=== PATIENT | male | born 1940 | race African-American/Black ===

== ENCOUNTER 2016-08-17 16:26 | Inpatient (IN) | payer MEDICARE, OTHER ==
[2016-08-17] MEDS ORDERED: NORMAL SALINE 1000 ML 1,000 ML IV ONE (19:49)
--- NOTE | 2016-08-17 20:35 | ER Document Report ---
ED GI/ - General Chief Complaint: Abdominal Pain Stated Complaint: RAPID HEART RATE,ABDOMINAL PAIN Time Seen by Provider: 08/17/16 19:11 Mode of Arrival: Ambulatory Information source: Patient, Relative Notes: 9-year-old male presents to ED for lower abdominal pain in the stomach for the last couple days. His niece is at the bedside bedside and states that he does have a history of dementia. On the chart it says he had a rapid heartbeat and chest pain but according to the patient he does not have her protect the and does not have chest pain. He denies any fevers or chills and just has the lower right abdominal pain for 4 days. TRAVEL OUTSIDE OF THE [place] IN LAST 30 DAYS: No - HPI Patient complains to provider of: Abdominal pain Onset: Other - 4 days knee since that time he is curled over with the pain Timing/Duration: Waxing and waning Quality of pain: Sharp Severity at maximum: Severe Severity in ED: Mild Pain Level: 2 Location: RLQ Associated symptoms: Blood in stool Exacerbated by: Denies Relieved by: Denies Similar symptoms previously: Yes Recently seen / treated by doctor: No - Related Data Allergies/Adverse Reactions: No Known Allergies Allergy (Unverified 08/17/16 20:30) Home Medications: Current Home Medications No Home Medications 08/18/16 [History] Past Medical History - General Information source: Patient, Relative Cannot obtain history due to: Dementia - Social History Smoking Status: Never Smoker Cigarette use (# per day): No Chew tobacco use (# tins/day): No Smoking Education Provided: No Frequency of alcohol use: Social Drug Abuse: None Lives with: Alone Family History: Reviewed & Not Pertinent Patient has homicidal ideation: No - Past Medical History Cardiac Medical History: Reports: None Pulmonary Medical History: Reports: None EENT Medical History: Reports: None Neurological Medical History: Reports: None Endocrine Medical History: Reports: None Renal/ Medical History: Reports: None Malignancy Medical History: Reports None GI Medical History: Reports: None Musculoskeltal Medical History: Reports None Skin Medical History: Reports None Psychiatric Medical History: Reports: Hx Dementia Traumatic Medical History: Reports: None Infectious Medical History: Reports: None Surgical Hx: Negative Past Surgical History: Reports: None Review of Systems - Review of Systems Constitutional: No symptoms reported EENT: No symptoms reported Cardiovascular: No symptoms reported Respiratory: No symptoms reported Gastrointestinal: Abdominal pain, Other - Dark stools Genitourinary: No symptoms reported Male Genitourinary: No symptoms reported Musculoskeletal: No symptoms reported Skin: No symptoms reported Hematologic/Lymphatic: No symptoms reported Neurological/Psychological: No symptoms reported -: Yes All other systems reviewed and negative Physical Exam - Vital signs Vitals: Temp Pulse Resp BP Pulse Ox 99.8 F 85 16 120/81 95 08/17/16 16:39 08/17/16 16:39 08/17/16 16:39 08/17/16 16:39 08/17/16 16:39 Interpretation: Normal - General General appearance: Appears well, Alert - HEENT Head: Normocephalic, Atraumatic Eyes: Normal Pupils: PERRL - Respiratory Respiratory status: No respiratory distress Chest status: Nontender Breath sounds: Normal Chest palpation: Normal - Cardiovascular Rhythm: Regular Heart sounds: Normal auscultation Murmur: No - Abdominal Inspection: Normal Distension: No distension Bowel sounds: Normal Tenderness: Tender - rlq adn llq Organomegaly: No organomegaly - Back Back: Normal, Nontender - Extremities General upper extremity: Normal inspection, Nontender, Normal color, Normal ROM , Normal temperature General lower extremity: Normal inspection, Nontender, Normal color, Normal ROM , Normal temperature, Normal weight bearing. No: Guillermina's sign - Neurological Neuro grossly intact: Yes Cognition: Normal Orientation: AAOx4 Anton Coma Scale Eye Opening: Spontaneous Anton Coma Scale Verbal: Oriented [place] Coma Scale Motor: Obeys Commands Anton Coma Scale Total: 15 Speech: Normal Motor strength normal: LUE, RUE, LLE, RLE Sensory: Normal - Psychological Associated symptoms: Normal affect, Normal mood - Skin Skin Temperature: Warm Skin Moisture: Dry Skin Color: Normal Course - Re-evaluation Re-evalutation: 08/18/16 06:58 Patient has dementia and Dr. Saavedra and signed the surgical consent per family's request - Vital Signs Vital signs: Temp Pulse Resp BP Pulse Ox 98.3 F 89 17 166/91 H 100 08/18/16 06:42 08/18/16 06:42 08/18/16 06:42 08/18/16 06:42 08/18/16 06:42 - Laboratory Result Diagrams: 08/17/16 20:15 08/17/16 20:15 Laboratory results interpreted by me: 08/17/16 08/17/16 08/17/16 20:15 20:15 20:15 RDW 14.7 H Chloride 96 L BUN 21 H Glucose 116 H Total Protein 8.7 H Urine Protein 100 H Urine Blood SMALL H Urine Urobilinogen 2.0 H - Diagnostic Test Radiology reviewed: Image reviewed, Reports reviewed Discharge - Discharge Clinical Impression: Appendicitis Qualifiers: Appendicitis type: acute appendicitis Acute appendicitis type: with localized peritonitis Qualified Code(s): K35.3 - Acute appendicitis with localized peritonitis Admitting Provider: Surgicalist - [facility] Unit Admitted: Surgical Floor
[2016-08-17 20:50] LABS: ABSOLUTE LYMPHOCYTES (AUTO) 1.7 10^3/uL (0.5-4.7); ABSOLUTE MONOCYTES (AUTO) 0.6 10^3/uL (0.1-1.4); BASOPHILS % (AUTO) 0.4 % (0-2); EOSINOPHILS % (AUTO) 0.3 % (0-6); HEMATOCRIT 42.3 % (37.9-51.0); HEMOGLOBIN 13.6 g/dL (13.5-17.0); HGB HCT DIFFERENCE -1.5; LYMPHOCYTES % (AUTO) 16.1 % (13-45); MEAN CORPUSCULAR HEMOGLOBIN 28.4 pg (27.0-33.4); MEAN CORPUSCULAR HGB CONC 32.2 g/dL (32.0-36.0); MEAN CORPUSCULAR VOLUME 88 fl (80-97); MONOCYTES % (AUTO) 5.4 % (3-13); RED BLOOD COUNT 4.78 10^6/uL (4.35-5.55); RED CELL DISTRIBUTION WIDTH 14.7 % (11.5-14.0); SEGMENTED NEUTROPHILS % (AUTO) 77.8 % (42-78); WHITE BLOOD COUNT 10.3 10^3/uL (4.0-10.5)
[2016-08-17 20:59] LABS: APPEARANCE,URINE SLIGHTLY-CLOUDY; BILIRUBIN,URINE NEGATIVE (NEGATIVE); GLUCOSE, URINE NEGATIVE (NEGATIVE); KETONES,URINE NEGATIVE (NEGATIVE); LEUKOCYTE ESTERASE,URINE NEGATIVE (NEGATIVE); NITRITE,URINE NEGATIVE (NEGATIVE); PROTEIN,URINE 100 mg/dL (NEGATIVE); URINE SPECIFIC GRAVITY 1.032
[2016-08-17 21:12] LABS: ALANINE AMINOTRANSFERASE 33 U/L (21-72); ALBUMIN 4.5 g/dL (3.5-5.0); ALKALINE PHOSPHATASE 76 U/L (38-126); ANION GAP 15 (5-19); ASPARTATE AMINO TRANSFERASE 18 U/L (17-59); BILIRUBIN,DIRECT 0.3 mg/dL (0.0-0.4); BILIRUBIN,TOTAL 1.3 mg/dL (0.2-1.3); BLOOD UREA NITROGEN 21 mg/dL (7-20); CALCIUM 9.7 mg/dL (8.4-10.2); CARBON DIOXIDE 29 mmol/L (22-30); CHLORIDE 96 mmol/L (98-107); CREATININE RESULT 0.88 mg/dL (0.52-1.25); GLUCOSE 116 mg/dL (75-110); LIPASE 41.6 U/L (23-300); POTASSIUM 3.8 mmol/L (3.6-5.0); SODIUM 139.9 mmol/L (137-145); TOTAL PROTEIN 8.7 g/dL (6.3-8.2)
--- NOTE | 2016-08-17 23:20 | RADIOLOGY REPORT (SQ) ---
EXAM DESCRIPTION: CT ABD/PELVIS WITH IV ORAL COMPLETED DATE/TIME: 08/17/2016 10:46 pm REASON FOR STUDY: lower right abdominal pain COMPARISON: None. TECHNIQUE: CT scan of the abdomen and pelvis performed using helical scanning technique with dynamic intravenous contrast injection. No oral contrast. Images reviewed with lung, soft tissue, and bone windows. Reconstructed coronal and sagittal MPR images reviewed. Delayed images for evaluation of the urinary system also acquired. All images stored on PACS. All CT scanners at this facility use dose modulation, iterative reconstruction, and/or weight based d osing when appropriate to reduce radiation dose to as low as reasonably achievable (ALARA). [facility]: Dose Right [facility]: CareDose [facility]: Dose Right [facility]: Teradose 4D [facility]: Magikflix CONTRAST TYPE AND DOSE: contrast/concentration: Isovue 370.00 mg/ml; Total Contrast Delivered: 80.0 ml; Total Saline Delivered: 68.0 ml RENAL FUNCTION: GFR > 60. RADIATION DOSE: Up-to-date CT equipment and radiation dose reduction techniques were employed. CTDIv ol: 6.3 mGy. DLP: 705 mGy-cm.. LIMITATIONS: None. FINDINGS: LOWER CHEST: Mild basilar subsegmental atelectasis. LIVER: Normal size. No masses. No dilated ducts. SPLEEN: Normal size. No focal lesions. PANCREAS: No masses. No significant calcifications. No adjacent inflammation or peripancreatic fluid collections. Pancreatic duct not dilated. GALLBLADDER: No identified stones by CT criteria. No inflammatory changes to suggest cholecystitis. ADRENAL GLANDS: No significant masses or asymmetry. RIGHT KIDNEY AND URETER: No solid masses. No significant calcifications. No hydronephrosis or hyd roureter. LEFT KIDNEY AND URETER: No solid masses. 4 cm cyst. . No significant calcifications. No hydronep hrosis or hydroureter. AORTA AND VESSELS: No aneurysm. No dissection. Renal arteries, SMA, celiac without stenosis. RETROPERITONEUM: No retroperitoneal adenopathy, hemorrhage or masses. BOWEL AND PERITONEAL CAVITY: Findings most consistent with acute appendicitis with moderate inflammat ory changes and free fluid in the right lower quadrant mesentery and wall thickening in the adjacent distal ileum. . APPENDIX: Findings most consistent with acute appendicitis with moderate inflammatory changes and karina e fluid in the right lower quadrant mesentery and wall thickening in the adjacent distal ileum. PELVIS: Mild free fluid. Normal bladder. ABDOMINAL WALL: No masses. No hernias. BONES: No significant or acute findings. OTHER: No other significant finding. IMPRESSION: Findings most consistent with acute appendicitis with moderate inflammatory changes and free fluid in the right lower quadrant mesentery and wall thickening in the adjacent distal ileum. S urgical consultation is recommended. TECHNICAL DOCUMENTATION: JOB ID: [id number] Quality ID # [id number]: Final reports with documentation of one or more dose reduction techniques (e.g., Au tomated exposure control, adjustment of the mA and/or kV according to patient size, use of iterative reconstruction technique) 2010 [employer]- All Rights Reserved
[2016-08-17] MEDS ORDERED: PIPERACILLIN/TAZOBACTAM 3.375 GM VIAL IV ONE (23:37)
[2016-08-18] MEDS ORDERED: PROPOFOL INJ 200 MG/20 ML VIAL IV ONE (00:31)
[2016-08-18] MEDS ORDERED: FENTANYL CITRATE INJ/PF 100 MCG/2 ML AMPUL ONE ×2 (00:31)
--- NOTE | 2016-08-18 00:51 | PDOC H&P ---
History of Present Illness Admission Date/PCP: 08/18/16 00:15 [facility] History of Present Illness: KT ALEMAN is a 76 year old male with a 4 day hx pf abdominal pain, poor appetite, pain localized in the right lower quadrant. He is suffering from dementia and lives at home by himself. He has been brought to the ER by family members (daughter, niece, and nephew) concerned about the patient condition. A CT scan of the A/P has been done and it is significant for acute appendicitis. However, the patient does not have any understanding of his condition as well as the possibility of loss of life should the condition be left untreated and has expressed the wish to leave the hospital "to think about things". In presence of the ER Physician, the patient has been requested to explain his understanding of his condition and the consequences should the condition be left untreated. He has shown nor understanding of the above and is unable to repeat the explanation conveyed to him. Also, the family brink not have anyone with power of civil litigation attorney; after the meeting, done in the presence of myself, patient, ER physician, and family members, has decision has been made that the daughter sign the consent in place of her father. In agreement with family members and the ED Physician, the patient should be taken to surgery tonight due to the emergency of the condition (appendicitis) requiring immediate surgical attention. Past Medical History Cardiac Medical History: Reports: None Pulmonary Medical History: Reports: None EENT Medical History: Reports: None Neurological Medical History: Reports: None Endocrine Medical History: Reports: None Renal/ Medical History: Reports: None Malignancy Medical History: Reports: None GI Medical History: Reports: None Musculoskeltal Medical History: Reports: None Skin Medical History: Reports: None Psychiatric Medical History: Reports: Dementia - significant Traumatic Medical History: Reports: None Infectious Medical History: Reports: None Past Surgical History Past Surgical History: Reports: None Social History Lives with: Alone Smoking Status: Never Smoker Frequency of Alcohol Use: None Drugs: None - Advance Directive Surrogate healthcare decision maker:: None Family History Family History: Reviewed & Not Pertinent Parental Family History Reviewed: Yes - n/a Children Family History Reviewed: Unknown Sibling(s) Family History Reviewed.: Unknown Medication/Allergy Home Medications: No Home Medications 08/18/16 Allergies/Adverse Reactions: No Known Allergies Allergy (Unverified 08/17/16 20:30) Physical Exam Vital Signs: Temp Pulse Resp BP Pulse Ox 99.8 F 85 16 120/81 95 08/17/16 16:39 08/17/16 16:39 08/17/16 16:39 08/17/16 16:39 08/17/16 16:39 General appearance: PRESENT: no acute distress, thin, well-developed Head exam: PRESENT: atraumatic Mouth exam: PRESENT: dry mucosa Neck exam: PRESENT: full ROM Respiratory exam: PRESENT: clear to auscultation cesar Cardiovascular exam: PRESENT: RRR GI/Abdominal exam: PRESENT: guarding, tenderness - in the right lower quadrant Rectal exam: PRESENT: deferred Musculoskeletal exam: PRESENT: full ROM Neurological exam: PRESENT: alert Psychiatric exam: PRESENT: anxious, other - shows no understandoing of his condition and consequences Results Impressions: Abdomen/Pelvis CT 08/17/16 19:49 IMPRESSION: Findings most consistent with acute appendicitis with moderate inflammatory changes and free fluid in the right lower quadrant mesentery and wall thickening in the adjacent distal ileum. Surgical consultation is recommended. Assessment & Plan - Diagnosis (1) Appendicitis Qualifiers: Appendicitis type: acute appendicitis Acute appendicitis type: with localized peritonitis Qualified Code(s): K35.3 - Acute appendicitis with localized peritonitis - Plan Summary Plan Summary: Aggressive IV hydration 1 L NS and NS @ 150 cc/hr IV Zosyn as preop antibiotic Plan: laparoscopic appendectomy. possible open. Procedure, risks, benefits, complications including stroke, heart attack, possible have been explained to the patient and family. While the family has full understanding of the procedure, complications, and alternatives, the patient shows no understanding of the above and the daughter will sing the consent. Patient will remain hospitalized for 1-2 days after the procedure
[2016-08-18] MEDS ORDERED: LIDOCAINE 1% INJ-PF (10 MG/ML) 30 ML SDV INJ ONE (01:22)
[2016-08-18] MEDS ORDERED: LIDOCAINE 1% INJ-PF (10 MG/ML) 30 ML SDV ONE (01:25)
[2016-08-18] MEDS ORDERED: ONDANSETRON HCL INJ/PF 4 MG/2 ML SDV IV PRN ×3 (01:55→13:33)
[2016-08-18] MEDS ORDERED: MEPERIDINE HCL/PF INJ 25 MG/1 ML DISP.SYRIN IV PRN (01:55)
[2016-08-18] MEDS ORDERED: DIPHENHYDRAMINE HCL 50 MG/ML VIAL IV PRN (01:55)
[2016-08-18] MEDS ORDERED: FENTANYL CITRATE INJ/PF 100 MCG/2 ML AMPUL IV PRN ×2 (01:55)
--- NOTE | 2016-08-18 04:09 | Operative Report ---
Operative Report DATE OF SURGERY: 08/18/16 PREOPERATIVE DIAGNOSIS: Acute appendicitis POSTOPERATIVE DIAGNOSIS: Ruptured gangrenous acute appendicitis OPERATION: Attempted laparoscopic appendectomy. Exploratory laparotomy. Ileocecectomy SURGEON: NIKKI MONTES ANESTHESIA: Local TISSUE REMOVED OR ALTERED: Terminal ileum with cecum and appendix COMPLICATIONS: None ESTIMATED BLOOD LOSS: 200 mL INTRAOPERATIVE FINDINGS: Gangrenous ruptured acute appendicitis, ischemia of the cecum and terminal ileum PROCEDURE: The procedure was done in the operating room. The patient was placed in a supine position, general anesthesia induced by endotracheal intubation, Herrera catheter and nasogastric tube were inserted. The abdomen was prepped and draped in usual fashion and incision was made from just above the umbilicus to the symphysis pubis. A 5 mm port with Optiview adapter was inserted into the patient cavity. Pneumoperitoneum was established; under direct visualization, a 5 mm port was placed in the right upper quadrant. The 5 mm port of the umbilicus was removed and replaced by a 12 mm port; the 5 mm port was inserted in the left lower quadrant of the abdomen. The patient was placed in a Trendelenburg position with the right side elevated, the right lower quadrant revealed the presence of purulent material together with a very inflamed terminal ileum and cecum. The appendix could not be identified. However, after gentle dissection a moderate amount of oozing was noted together with purulent material and the stump of the appendix. It was obvious that the appendix was gangrenous and ruptured; a decision was made to abort the laparoscopic procedure and to perform a laparotomy. Laparotomy incision was made from just above the umbilicus down to the symphysis pubis. The peritoneal cavity was entered without difficulty. The small bowel was run from ligament of Treitz to terminal ileum and the last 20 cm were found to be severely inflamed with ischemic changes and compromise of the mesentery vessels. In addition, the appendix was found to be ruptured at the base with ischemic changes and necrosis of the cecum. A decision was made to perform an ileocecectomy. A Bookwalter retractor was then placed. The ileum was then divided about 20 cm proximal to the ileocecal valve with a LINDA stapler with blue load and the mesentery of the small bowel was then divided with LigaSure. The right colon was divided from the retroperitoneum by incising the peritoneum along the line of Toldt. Dissection was then continued distally almost up to the level of the flexure. Blunt and Bovie dissection of the retroperitoneal attachments of the right colon was performed so that this was mobilized to obtain adequate length for the future anastomosis. The cecum was then dissected and divided just distal to the area of ischemia with a LINDA stapler with green load. Further division of the mesentery of the small bowel and right colon allowed the specimen to be completely removed from the peritoneal cavity. Additional length of the right colon was obtained by blunt and Bovie dissection of the colon up to the level of the liver flexure. The cecum and small bowel and placed fect-nd-krel and kept in position with antimesenteric interrupted Lembert 2-0 silk sutures. The antimesenteric border of the small bowel staple line was opened with Bovie and enterotomy was created; similarly, a colotomy was created in the right colon stump. A LINDA stapler was inserted and fired to obtain an enterocolostomy. The enterotomy was closed with Allis clamps first followed by a TA stapler. The staple line was reinforced but with interrupted 2 -0 silk Lembert sutures. The mesentery defect at the level of the anastomosis was closed with running locking 2-0 silk suture. Two 10 mm Pito-Lombardo drains were placed in the left and right lower quadrant, into the pelvis and in the right lower quadrant, respectively. The peritoneal cavity was irrigated with 4 L of normal saline which was fully aspirated, nasogastric tube position was manually checked and found to be in the stomach. The abdominal wall was closed with a running looped #1 PDS suture. The skin was irrigated and closed with renee; sterile dressings were applied to the wound. The patient tolerated procedure well, extubated, and transferred to recovery room in satisfactory conditions. The count of instruments, sponges, and needles was correct 3.
[2016-08-18] MEDS ORDERED: NORMAL SALINE INJ/PF 0.9% 10 ML SDV IV PRN (04:14)
[2016-08-18] MEDS ORDERED: NORMAL SALINE 1000 ML 1,000 ML IV PRN (04:20)
[2016-08-18] MEDS ORDERED: PIPERACILLIN/TAZOBACTAM 3.375 GM VIAL IV PRN (04:30)
[2016-08-18] MEDS ORDERED: PHARMACY COMMUNICATION ORDER MC NR (04:45)
--- NOTE | 2016-08-18 04:47 | ER Document Report ---
Doctor's Note Notes: 08/18/16 00:45 Patient is a 76-year-old male with a history of probable dementia. Patient comes in with abdominal pain and CT showing acute appendicitis. Patient with right lower quadrant tenderness. Patient does not have a healthcare proxy or power of employment attorney. Patient states that he does not want to have surgery tonight and would like to go home and come back after he had some time to think about things. Patient is not able to express understanding of what is going on. Patient is concerned that people are going to mess with his mind. Patient did not show any understanding that he has an infection and the potential consequences of the infection. Family is requesting that the patient be treated and taken to surgery. The patient does not appear to have capacity to make this decision at this time. When asked about the understanding of his present medical problem, patient to see me to please tell me what my understanding is. Patient does not express any understanding of appendicitis, implications of not treating it, and that this could be a possible fatal condition. Due to the urgent nature of treatment of this problem, agrees with the patient does not have capacity for this decision making and that the daughter can make the decision for him at this time. Patient will be taken to the operating room with Dr. Soto.
[2016-08-18] MEDS ORDERED: MORPHINE SULFATE 10 MG/ML INJ IV PRN (06:00)
[2016-08-18] MEDS ORDERED: PIPERACILLIN/TAZOBACTAM 3.375 GM VIAL IV ONE (06:05)
[2016-08-18] MEDS ORDERED: LORAZEPAM INJ 2 MG/1 ML VIAL ONE (06:52)
[2016-08-18] MEDS: PIPERACILLIN SODIUM/TAZOBACTAM 3.375 GM in NORMAL SALINE 100 ML IV SCH ×4 (07:04→23:20)
[2016-08-18 07:05] LABS: ABSOLUTE LYMPHOCYTES (AUTO) 0.8 10^3/uL (0.5-4.7); ABSOLUTE MONOCYTES (AUTO) 0.4 10^3/uL (0.1-1.4); ABSOLUTE NEUT (AUTO) 7.4 10^3/uL (1.7-8.2); BASOPHILS % (AUTO) 0.2 % (0-2); EOSINOPHILS % (AUTO) 0.1 % (0-6); HEMATOCRIT 40.7 % (37.9-51.0); HEMOGLOBIN 13.3 g/dL (13.5-17.0); HGB HCT DIFFERENCE -0.8; LYMPHOCYTES % (AUTO) 9.2 % (13-45); MEAN CORPUSCULAR HEMOGLOBIN 28.5 pg (27.0-33.4); MEAN CORPUSCULAR HGB CONC 32.7 g/dL (32.0-36.0); MEAN CORPUSCULAR VOLUME 87 fl (80-97); MONOCYTES % (AUTO) 4.6 % (3-13); RED BLOOD COUNT 4.68 10^6/uL (4.35-5.55); RED CELL DISTRIBUTION WIDTH 14.1 % (11.5-14.0); SEGMENTED NEUTROPHILS % (AUTO) 85.9 % (42-78); WHITE BLOOD COUNT 8.7 10^3/uL (4.0-10.5)
[2016-08-18 07:25] LABS: ANION GAP 15 (5-19); BLOOD UREA NITROGEN 18 mg/dL (7-20); CHLORIDE 103 mmol/L (98-107); CREATININE RESULT 0.72 mg/dL (0.52-1.25); GLUCOSE 195 mg/dL (75-110); POTASSIUM 3.8 mmol/L (3.6-5.0); SODIUM 136.9 mmol/L (137-145)
--- NOTE | 2016-08-18 07:40 | RADIOLOGY REPORT (SQ) ---
EXAM DESCRIPTION: KUB/ABDOMEN (SINGLE VIEW) COMPLETED DATE/TIME: 08/18/2016 6:46 am REASON FOR STUDY: Check Placement of NG Tube COMPARISON: CT, abdomen, 08/17/2016. NUMBER OF VIEWS: One view. TECHNIQUE: Supine radiographic image of the abdomen acquired. LIMITATIONS: Partial imaging of the upper abdomen and lower chest. FINDINGS: BOWEL GAS PATTERN: Normal bowel gas pattern. Minimally dilated -stacked gaseous loops of the left paracentral abdomen measuring up to 3.3 cm in diameter may indicate an ileus. Retained inte stinal contrast. CALCIFICATIONS: No suspicious calcifications. SOFT TISSUES: No gross mass or suggestion of organomegaly. HARDWARE: NG tube tip and proximal port overlie the stomach. Possible drainage catheter or artifact at the lateral aspect of the right mid abdomen partially imaged. BONES: No acute fracture. No worrisome bone lesions. OTHER: No other significant finding. IMPRESSION: 1. Adequate appearing NG tube. 2. Mild stacking of small bowel in the left paracentra l abdomen may indicate an ileus ; cannot exclude an early or low grade obstruction. TECHNICAL DOCUMENTATION: JOB ID: [id number]- All Rights Reserved
[2016-08-18 07:41] LABS: CARBON DIOXIDE 19 mmol/L (22-30)
--- NOTE | 2016-08-18 08:59 | RADIOLOGY REPORT (SQ) ---
EXAM DESCRIPTION: KUB/ABDOMEN (SINGLE VIEW) COMPLETED DATE/TIME: 08/18/2016 8:17 am REASON FOR STUDY: Check Placement of NG Tube COMPARISON: CT abdomen pelvis 08/17/2016 Abdominal films 08/18/2016 NUMBER OF VIEWS: One view. TECHNIQUE: Supine radiographic image of the abdomen acquired. LIMITATIONS: None. FINDINGS: BOWEL GAS PATTERN: Residual oral contrast from CT in nondistended small bowel loops. Few air-fluid levels in borderline distended small bowel loops in the mid abdomen likely a postoperative ileus. CALCIFICATIONS: No suspicious calcifications. SOFT TISSUES: No gross mass or suggestion of organomegaly. HARDWARE: Nasogastric tube tip and side port in the stomach. Right lower quadrant bowel anastomotic renee, right lower quadrant Pito-Lombardo drain at the bottom edge of the field of view BONES: No acute fracture. No worrisome bone lesions. OTHER: No other significant finding. IMPRESSION: Nasogastric tube tip and side port in the stomach. Ileus bowel gas pattern TECHNICAL DOCUMENTATION: JOB ID: [id number] [employer]- All Rights Reserved
--- NOTE | 2016-08-18 09:02 | PDOC PROGRESS REPORT ---
Subjective Progress Note for:: 08/18/16 Subjective:: Patient confused. But in no acute distress. At times cooperative. Physical Exam Vital Signs: Temp Pulse Resp BP Pulse Ox 98.6 F 95 18 140/103 H 97 08/18/16 08:07 08/18/16 08:07 08/18/16 08:07 08/18/16 08:07 08/18/16 08:07 Intake & Output 08/17/16 08/18/16 08/19/16 06:59 06:59 06:59 Intake Total 5875 Output Total 4460 Balance 1415 Weight 75.2 kg General appearance: PRESENT: no acute distress Respiratory exam: PRESENT: clear to auscultation cesar Cardiovascular exam: PRESENT: RRR GI/Abdominal exam: PRESENT: other - Soft, nondistended, diffuse abdominal tenderness. Drain output is serosanguineous. Extremities exam: PRESENT: other - No swelling. Results Laboratory Results: 08/18/16 06:11 08/18/16 06:11 08/18/16 08/18/16 06:11 06:11 WBC 8.7 RBC 4.68 Hgb 13.3 L Hct 40.7 MCV 87 MCH 28.5 MCHC 32.7 RDW 14.1 H Plt Count 226 Seg Neutrophils % 85.9 H Lymphocytes % 9.2 L Monocytes % 4.6 Eosinophils % 0.1 Basophils % 0.2 Absolute Neutrophils 7.4 Absolute Lymphocytes 0.8 Absolute Monocytes 0.4 Absolute Eosinophils 0.0 Absolute Basophils 0.0 Sodium 136.9 L Potassium 3.8 Chloride 103 Carbon Dioxide 19 L D Anion Gap 15 BUN 18 Creatinine 0.72 Est GFR ( Amer) > 60 Est GFR (Non-Af Amer) > 60 Glucose 195 H Calcium 8.0 L Impressions: Abdomen/Pelvis CT 08/17/16 19:49 IMPRESSION: Findings most consistent with acute appendicitis with moderate inflammatory changes and free fluid in the right lower quadrant mesentery and wall thickening in the adjacent distal ileum. Surgical consultation is recommended. KUB X-Ray 08/18/16 07:26 IMPRESSION: Nasogastric tube tip and side port in the stomach. Ileus bowel gas pattern Assessment & Plan - Diagnosis (1) Appendicitis Qualifiers: Appendicitis type: acute appendicitis Acute appendicitis type: with localized peritonitis Qualified Code(s): K35.3 - Acute appendicitis with localized peritonitis Is this a current diagnosis for this admission?: YesPlan: Status post ileocecectomy for perforated appendicitis. Patient appears okay postoperatively. Patient has underlying chronic dementia. Await bowel function. Has had to restrain patient due to his confusion. He does not appear toxic. Will consult hospitalist concerning his confusion and dementia
[2016-08-18] MEDS ORDERED: VECURONIUM BROMIDE INJ 10 MG VIAL IV ONE (09:31)
[2016-08-18] MEDS ORDERED: PHENYLEPHRINE HCL INJ/PF 10 MG/1 ML SDV ONE (09:31)
[2016-08-18] MEDS ORDERED: SUCCINYLCHOLINE CHLORIDE INJ 200 MG/10 ML VIAL ONE (09:31)
[2016-08-18] MEDS ORDERED: GLYCOPYRROLATE INJ 0.4 MG/2 ML VIAL ONE (09:31)
[2016-08-18] MEDS ORDERED: NEOSTIGMINE METHYLSULFATE 10 MG/10 ML VIAL ONE (09:31)
[2016-08-18] MEDS ORDERED: ONDANSETRON HCL INJ/PF 4 MG/2 ML SDV ONE (09:31)
[2016-08-18] MEDS ORDERED: DEXAMETHASONE SOD PHOSPHATE INJ 4 MG/1 ML VIAL ONE (09:31)
[2016-08-18] MEDS ORDERED: LIDOCAINE 2% INJ-PF (20 MG/ML) 10 ML AMPUL ONE (09:31)
[2016-08-18] MEDS: PANTOPRAZOLE SODIUM 40 MG VIAL IV SCH (10:19)
--- NOTE | 2016-08-18 20:59 | PDOC CONSULTATION ---
Consultation Consult Date: 08/18/16 Attending physician:: ALEC MORAN Consult reason:: Confusion and Dementia History of Present Illness Admission Date/PCP: 08/18/16 00:15 STEWART CALDWELL Patient complains of: Confusion with history of dementia History of Present Illness: KT ALEMAN is a 76 year old male patient known to my practice who was brought to the ED by family due to 4 days history of abdominal pain. His initial ED evaluation for remarkable for demonstrable dementia with lack of insight into his acute medical problem. After extensive discussion with family, including his daughter, niece, and nephew, and findings on his CAT abdomen and pelvis suggestive of appendicitis, decision was made for emergent surgical intervention. He had microscopic laparatomy that was converted to open due to intraperitoneal finding of ruptured appendix with local peritonitis. Patient had appendectomy with ileocecectomy. His post operative period has been mere with agitation and need for wrist restrains. He is currently on IV Zosyn, Morphine sulfate, Zofran, Protonix, and IV Normal saline infusion. His morbidities include hypertension, dementia, probable mixed type, and osteoarthritis. Past Medical History Cardiac Medical History: Reports: Hypertension Pulmonary Medical History: Reports: None EENT Medical History: Reports: None Neurological Medical History: Reports: None Endocrine Medical History: Reports: None Renal/ Medical History: Reports: None Malignancy Medical History: Reports: None GI Medical History: Reports: None Musculoskeltal Medical History: Reports: Arthritis Skin Medical History: Reports: None Psychiatric Medical History: Reports: Dementia Traumatic Medical History: Reports: None Infectious Medical History: Reports: None Past Surgical History Past Surgical History: Reports: None Social History Lives with: Alone Smoking Status: Never Smoker Frequency of Alcohol Use: None Drugs: None - Advance Directive Resuscitation Status: Full Code Family History Family History: Reviewed & Not Pertinent Parental Family History Reviewed: Yes Children Family History Reviewed: Yes Sibling(s) Family History Reviewed.: Yes Medication/Allergy Home Medications: No Home Medications 08/18/16 Allergies/Adverse Reactions: No Known Allergies Allergy (Unverified 08/17/16 20:30) Review of Systems ROS unobtainable: Due to mental status Physical Exam Vital Signs: Temp Pulse Resp BP Pulse Ox 98.7 F 91 18 133/98 H 100 08/18/16 16:11 08/18/16 16:11 08/18/16 16:11 08/18/16 16:11 08/18/16 16:11 Intake & Output 08/17/16 08/18/16 08/19/16 06:59 06:59 06:59 Intake Total 5875 1500 Output Total 4460 960 Balance 1415 540 Weight 75.2 kg General appearance: PRESENT: no acute distress, cooperative - with wrist restraints and mittens in use, obese Head exam: PRESENT: atraumatic, normocephalic Eye exam: PRESENT: conjunctiva pink, EOMI, PERRLA. ABSENT: scleral icterus Ear exam: PRESENT: normal external ear exam Mouth exam: PRESENT: moist, tongue midline Throat exam: ABSENT: post pharyngeal erythema, tonsillar erythema, tonsillar exudate, tonsillogmegaly, other Neck exam: PRESENT: full ROM. ABSENT: carotid bruit, JVD, lymphadenopathy, thyromegaly Respiratory exam: PRESENT: clear to auscultation cesar Cardiovascular exam: PRESENT: RRR. ABSENT: diastolic murmur, rubs, systolic murmur Vascular exam: ABSENT: pallor GI/Abdominal exam: PRESENT: hypoactive bowel sounds, tenderness - related to recent surgical wound site. drainage system in situ with serosanguinous fluid in reservoir.. ABSENT: rebound Rectal exam: PRESENT: deferred Extremities exam: ABSENT: pedal edema Musculoskeletal exam: PRESENT: deformity - related to multiple joints involvement with arthritis Neurological exam: PRESENT: altered - tangential in responses without clear understanding of his medical situation. He continue to express wish to go home. , oriented to person Psychiatric exam: PRESENT: agitated - but cooperative with evaluation Skin exam: PRESENT: dry, intact - except for surgoical site., warm, other - surgical site dressing satisfactory Results Laboratory Results: 08/18/16 06:11 08/18/16 06:11 08/18/16 08/18/16 06:11 06:11 WBC 8.7 RBC 4.68 Hgb 13.3 L Hct 40.7 MCV 87 MCH 28.5 MCHC 32.7 RDW 14.1 H Plt Count 226 Seg Neutrophils % 85.9 H Lymphocytes % 9.2 L Monocytes % 4.6 Eosinophils % 0.1 Basophils % 0.2 Absolute Neutrophils 7.4 Absolute Lymphocytes 0.8 Absolute Monocytes 0.4 Absolute Eosinophils 0.0 Absolute Basophils 0.0 Sodium 136.9 L Potassium 3.8 Chloride 103 Carbon Dioxide 19 L D Anion Gap 15 BUN 18 Creatinine 0.72 Est GFR ( Amer) > 60 Est GFR (Non-Af Amer) > 60 Glucose 195 H Calcium 8.0 L Impressions: Abdomen/Pelvis CT 08/17/16 19:49 IMPRESSION: Findings most consistent with acute appendicitis with moderate inflammatory changes and free fluid in the right lower quadrant mesentery and wall thickening in the adjacent distal ileum. Surgical consultation is recommended. KUB X-Ray 08/18/16 07:26 IMPRESSION: Nasogastric tube tip and side port in the stomach. Ileus bowel gas pattern Assessment & Plan - Diagnosis (1) Acute cecitis with rupture of appendix Is this a current diagnosis for this admission?: YesPlan: Further management as per surgical team. (2) Postoperative confusion Is this a current diagnosis for this admission?: YesPlan: Most likely postoperative delirium due to acute illness stress on baseline dementia. Patient will benefit from supplemental stress vitamin, less environmental stimulation and sleep disruption. Limit use of opioid to prn for shortest duration. Consider use of low dose IV Haloperidol for acute agitation. continue IV antibiotic coverage for possible underlying sepsis. Monitor indices of infection. (3) Mixed dementia Is this a current diagnosis for this admission?: YesPlan: Hold off on treatment until resolution of his acute illness. I had extensive discussion with bronwyn at bedside regarding post hospital care. 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 (4) Hypertension Qualifiers: Hypertension type: essential hypertension Qualified Code(s): I10 - Essential (primary) hypertension Is this a current diagnosis for this admission?: YesPlan: Monitor and initiate anti hypertensive medication management as indicated. Consider IV Vasotec until oral route of administration is reinstated. (5) Osteoarthritis involving multiple joints on both sides of body Is this a current diagnosis for this admission?: YesPlan: Maintain on preadmission pain medication management. - Time Time Spent: Greater than 70 Minutes - More than 50% of this time was spent on care plan review, care coordination and discussion with bernadine at bedside. Medications reviewed and adjusted accordingly: Yes Anticipated discharge: SNF - for short term rehabilitation Within: Other - Inpatient Certification Medical Necessity: Need Close Monitoring Due to Risk of Patient Decompensation, Need For IV Fluids, Need for IV Antibiotics, Need for Surgery, Risk of Complication if Not Cared For in Hospital Post Hospital Care: D/C or Transfer Summary - Plan Summary Plan Summary: As noted above. Thank you for the consultation. I will follow up on medical aspect of management. Patient will benefit from psych social worker/operations planner input regarding post hospitalization placement.
[2016-08-18] MEDS ORDERED: ENALAPRILAT DIHYDRATE INJ/PF 1.25 MG/1 ML SDV IV PRN (21:02)
[2016-08-18] MEDS ORDERED: HALOPERIDOL LACTATE INJ 5 MG/1 ML VIAL IV PRN (21:03)
[2016-08-18] MEDS: MORPHINE SULFATE 10 MG/ML INJ IV PRN (22:39)
[2016-08-18] MEDS: NORMAL SALINE 1000 ML 1,000 ML with POTASSIUM CHLORIDE 20 MEQ, MAGNESIUM SULFATE 8 MEQ,... IV SCH ×5 (22:39)
[2016-08-19] MEDS: PIPERACILLIN SODIUM/TAZOBACTAM 3.375 GM in NORMAL SALINE 100 ML IV SCH ×3 (04:57→17:42)
[2016-08-19] MEDS: MORPHINE SULFATE 10 MG/ML INJ IV PRN ×2 (04:57→21:27)
[2016-08-19 05:00] LABS: ABSOLUTE LYMPHOCYTES (AUTO) 1.4 10^3/uL (0.5-4.7); ABSOLUTE MONOCYTES (AUTO) 0.9 10^3/uL (0.1-1.4); ABSOLUTE NEUT (AUTO) 8.7 10^3/uL (1.7-8.2); BASOPHILS % (AUTO) 0.3 % (0-2); HEMATOCRIT 37.8 % (37.9-51.0); HEMOGLOBIN 12.2 g/dL (13.5-17.0); HGB HCT DIFFERENCE -1.2; LYMPHOCYTES % (AUTO) 12.4 % (13-45); MEAN CORPUSCULAR HEMOGLOBIN 28.4 pg (27.0-33.4); MEAN CORPUSCULAR HGB CONC 32.2 g/dL (32.0-36.0); MEAN CORPUSCULAR VOLUME 88 fl (80-97); MONOCYTES % (AUTO) 8.4 % (3-13); RED BLOOD COUNT 4.29 10^6/uL (4.35-5.55); RED CELL DISTRIBUTION WIDTH 14.4 % (11.5-14.0); SEGMENTED NEUTROPHILS % (AUTO) 78.9 % (42-78); WHITE BLOOD COUNT 11.1 10^3/uL (4.0-10.5)
[2016-08-19 05:14] LABS: ANION GAP 8 (5-19); BLOOD UREA NITROGEN 11 mg/dL (7-20); CALCIUM 7.6 mg/dL (8.4-10.2); CARBON DIOXIDE 26 mmol/L (22-30); CHLORIDE 105 mmol/L (98-107); CREATININE RESULT 0.73 mg/dL (0.52-1.25); GLUCOSE 122 mg/dL (75-110); SODIUM 139.3 mmol/L (137-145)
[2016-08-19] MEDS: PANTOPRAZOLE SODIUM 40 MG VIAL IV SCH (10:38)
[2016-08-19] MEDS: NORMAL SALINE 1000 ML 1,000 ML IV PRN (10:46)
--- NOTE | 2016-08-19 15:15 | PDOC PROGRESS REPORT ---
Subjective Progress Note for:: 08/19/16 Subjective:: Sitter reported that patient have been sleeping most of the day. NG tube in situ with significant bilious drainage. Patent denied any chest pain or difficulty with breathing. No reported fever or demonstrable chills. More appropriate in simple responses today. Physical Exam Vital Signs: Temp Pulse Resp BP Pulse Ox 98.2 F 72 16 114/76 100 08/19/16 11:45 08/19/16 11:45 08/19/16 11:45 08/19/16 11:45 08/19/16 11:45 Intake & Output 08/18/16 08/19/16 08/20/16 06:59 06:59 06:59 Intake Total 5875 2700 Output Total 4460 2040 Balance 1415 660 Weight 75.2 kg 75.7 kg General appearance: PRESENT: no acute distress, cooperative - but remin on wrist restraints Head exam: PRESENT: atraumatic, normocephalic Eye exam: PRESENT: conjunctiva pink, EOMI, PERRLA. ABSENT: scleral icterus Mouth exam: PRESENT: moist, tongue midline, other - NGT in situ with bilious drainage Respiratory exam: PRESENT: clear to auscultation cesar Cardiovascular exam: PRESENT: RRR. ABSENT: diastolic murmur, rubs, systolic murmur GI/Abdominal exam: PRESENT: hypoactive bowel sounds, soft, other - drainage device with serosanguinous fluid collection.. ABSENT: guarding, rebound Extremities exam: ABSENT: pedal edema Musculoskeletal exam: PRESENT: deformity - relaated to multiple joints involvement with arthritis Neurological exam: PRESENT: alert, oriented to person. ABSENT: oriented to time , oriented to situation Psychiatric exam: ABSENT: agitated, anxious Skin exam: PRESENT: dry, warm, other - surgical wound site satisfactory. Drainage system in situe. Results Laboratory Results: 08/19/16 04:13 08/19/16 04:13 08/19/16 08/19/16 04:13 04:13 WBC 11.1 H RBC 4.29 L Hgb 12.2 L Hct 37.8 L MCV 88 MCH 28.4 MCHC 32.2 RDW 14.4 H Plt Count 211 Seg Neutrophils % 78.9 H Lymphocytes % 12.4 L Monocytes % 8.4 Eosinophils % 0.0 Basophils % 0.3 Absolute Neutrophils 8.7 H Absolute Lymphocytes 1.4 Absolute Monocytes 0.9 Absolute Eosinophils 0.0 Absolute Basophils 0.0 Sodium 139.3 Potassium 4.0 Chloride 105 Carbon Dioxide 26 Anion Gap 8 BUN 11 Creatinine 0.73 Est GFR ( Amer) > 60 Est GFR (Non-Af Amer) > 60 Glucose 122 H Calcium 7.6 L Impressions: Abdomen/Pelvis CT 08/17/16 19:49 IMPRESSION: Findings most consistent with acute appendicitis with moderate inflammatory changes and free fluid in the right lower quadrant mesentery and wall thickening in the adjacent distal ileum. Surgical consultation is recommended. KUB X-Ray 08/18/16 07:26 IMPRESSION: Nasogastric tube tip and side port in the stomach. Ileus bowel gas pattern Assessment & Plan - Diagnosis (1) Acute cecitis with rupture of appendix Is this a current diagnosis for this admission?: YesPlan: Further management as per surgical team. (2) Postoperative confusion Is this a current diagnosis for this admission?: YesPlan: See medical attending physician orders. Maintain on current medication management. (3) Mixed dementia Is this a current diagnosis for this admission?: YesPlan: See medical attending physician orders. (4) Hypertension Qualifiers: Hypertension type: essential hypertension Qualified Code(s): I10 - Essential (primary) hypertension Is this a current diagnosis for this admission?: YesPlan: Better controlled. Maintain on current medication management. (5) Osteoarthritis involving multiple joints on both sides of body Is this a current diagnosis for this admission?: YesPlan: Maintain on current pain medication management. - Time Time Spent with patient: 25-34 minutes Medications reviewed and adjusted accordingly: Yes Anticipated discharge: SNF Within: Other - Inpatient Certification Medical Necessity: Need Close Monitoring Due to Risk of Patient Decompensation, Need For IV Fluids, Need For Continuous Telemetry Monitoring, Need for IV Antibiotics, Need for Surgery, Risk of Complication if Not Cared For in Hospital Post Hospital Care: D/C or Transfer Summary - Plan Summary Plan Summary: See medical attending physician orders.
[2016-08-19] MEDS: NORMAL SALINE 1000 ML 1,000 ML with POTASSIUM CHLORIDE 20 MEQ, MAGNESIUM SULFATE 8 MEQ,... IV SCH ×5 (17:46)
[2016-08-19 20:36] LABS: HEMATOCRIT 37.5 % (37.9-51.0); HGB HCT DIFFERENCE -1.5; MEAN CORPUSCULAR HEMOGLOBIN 28.3 pg (27.0-33.4); MEAN CORPUSCULAR VOLUME 88 fl (80-97); RED BLOOD COUNT 4.25 10^6/uL (4.35-5.55); RED CELL DISTRIBUTION WIDTH 13.8 % (11.5-14.0)
--- NOTE | 2016-08-19 22:38 | PROGRESS NOTE E ---
Progress Note NAME: KT ALEMAN : 1940 AGE: 76Y DATE: 08/19/2016 ROOM: 406 SUBJECTIVE: Patient is postoperative day 2 from ileocecectomy for perforated appendicitis. The patient is only having mild abdominal pain at the current time. He does appear to be alert and more coherent than he was yesterday. The hospitalist is following him also for his mental status. The patient is not complaining of any significant abdominal pain. He has not had any flatus at the current time. OBJECTIVE: VITAL SIGNS: Temperature is 98.1, pulse 76, blood pressure 122/73. He currently has a NG tube in place with bilious drainage. He has had 200 mL overnight. His left and right abdominal ELSIE drains were 50 and 10 mL. ABDOMEN: Patient's abdominal incisions dressings had a little drainage being present with no evidence of infection being noted. The ELSIE drains were serosanguineous. DIAGNOSTIC DATA: White blood cell count of 11.1, hemoglobin 12.2. Cultures currently are pending with initial culture is gram positive cocci in chains with final pending at the current time. ASSESSMENT: STATUS POST ILEOCECECTOMY FOR PERFORATED APPENDICITIS POSTOPERATIVE DAY 2. Awaiting return of bowel function. He currently has a NG tube in place and as long as it is draining bilious material, would keep it in until we know bowel function has fully returned. PLAN: 1. Continue IV fluids. 2. IV antibiotics. 3. Check cultures when obtained. 4. Ambulation. 5. Hospitalist following his mental status. DICTATING PHYSICIAN: PAULINE VAUGHN M.D. [id number] Y#: [id number] 2011 ID: [id number] JOB#: [id number] ACCT: [id number] cc: >
[2016-08-20] MEDS: PIPERACILLIN SODIUM/TAZOBACTAM 3.375 GM in NORMAL SALINE 100 ML IV SCH ×5 (01:11→23:32)
[2016-08-20 05:19] LABS: ABSOLUTE BASOPHILS # (AUTO) 0.1 10^3/uL (0.0-0.2); ABSOLUTE EOSINOPHILS # (AUTO) 0.1 10^3/uL (0.0-0.6); ABSOLUTE LYMPHOCYTES (AUTO) 1.9 10^3/uL (0.5-4.7); ABSOLUTE MONOCYTES (AUTO) 0.9 10^3/uL (0.1-1.4); ABSOLUTE NEUT (AUTO) 8.6 10^3/uL (1.7-8.2); BASOPHILS % (AUTO) 0.5 % (0-2); EOSINOPHILS % (AUTO) 0.5 % (0-6); HEMATOCRIT 36.7 % (37.9-51.0); HEMOGLOBIN 11.5 g/dL (13.5-17.0); HGB HCT DIFFERENCE -2.2; LYMPHOCYTES % (AUTO) 16.4 % (13-45); MEAN CORPUSCULAR HEMOGLOBIN 27.9 pg (27.0-33.4); MEAN CORPUSCULAR HGB CONC 31.5 g/dL (32.0-36.0); MEAN CORPUSCULAR VOLUME 89 fl (80-97); MONOCYTES % (AUTO) 7.8 % (3-13); RED BLOOD COUNT 4.14 10^6/uL (4.35-5.55); RED CELL DISTRIBUTION WIDTH 13.9 % (11.5-14.0); SEGMENTED NEUTROPHILS % (AUTO) 74.8 % (42-78); WHITE BLOOD COUNT 11.5 10^3/uL (4.0-10.5)
[2016-08-20 05:36] LABS: ANION GAP 8 (5-19); BLOOD UREA NITROGEN 13 mg/dL (7-20); CALCIUM 7.8 mg/dL (8.4-10.2); CARBON DIOXIDE 28 mmol/L (22-30); CHLORIDE 105 mmol/L (98-107); CREATININE RESULT 0.72 mg/dL (0.52-1.25); GLUCOSE 86 mg/dL (75-110); POTASSIUM 4.2 mmol/L (3.6-5.0); SODIUM 140.5 mmol/L (137-145)
[2016-08-20] MEDS: PANTOPRAZOLE SODIUM 40 MG VIAL IV SCH (11:34)
--- NOTE | 2016-08-20 15:02 | PDOC PROGRESS REPORT ---
Subjective Progress Note for:: 08/20/16 Subjective:: pt is feeling better and confusion is better ptdid pt and doing well today' still have gerber moon Physical Exam Vital Signs: Temp Pulse Resp BP Pulse Ox 98.7 F 71 15 119/78 91 L 08/20/16 12:01 08/20/16 12:01 08/20/16 12:01 08/20/16 12:01 08/20/16 12:01 Intake & Output 08/19/16 08/20/16 08/21/16 06:59 06:59 06:59 Intake Total 2700 2600 Output Total 2040 2395 Balance 660 205 Weight 75.7 kg 78.8 kg General appearance: PRESENT: no acute distress Eye exam: PRESENT: PERRLA Mouth exam: PRESENT: neck supple Respiratory exam: PRESENT: clear to auscultation cesar Cardiovascular exam: PRESENT: +S1, +S2 GI/Abdominal exam: PRESENT: normal bowel sounds Additonal comments: dressing intact and drain tube prenst Neurological exam: PRESENT: alert, awake, oriented to person, oriented to place , oriented to time Results Laboratory Results: 08/20/16 04:26 08/20/16 04:26 08/19/16 08/20/16 08/20/16 20:27 04:26 04:26 WBC 12.0 H 11.5 H RBC 4.25 L 4.14 L Hgb 12.0 L 11.5 L Hct 37.5 L 36.7 L MCV 88 89 MCH 28.3 27.9 MCHC 32.0 31.5 L RDW 13.8 13.9 Plt Count 207 224 Seg Neutrophils % 74.8 Lymphocytes % 16.4 Monocytes % 7.8 Eosinophils % 0.5 Basophils % 0.5 Absolute Neutrophils 8.6 H Absolute Lymphocytes 1.9 Absolute Monocytes 0.9 Absolute Eosinophils 0.1 Absolute Basophils 0.1 Sodium 140.5 Potassium 4.2 Chloride 105 Carbon Dioxide 28 Anion Gap 8 BUN 13 Creatinine 0.72 Est GFR ( Amer) > 60 Est GFR (Non-Af Amer) > 60 Glucose 86 Calcium 7.8 L Impressions: Abdomen/Pelvis CT 08/17/16 19:49 IMPRESSION: Findings most consistent with acute appendicitis with moderate inflammatory changes and free fluid in the right lower quadrant mesentery and wall thickening in the adjacent distal ileum. Surgical consultation is recommended. KUB X-Ray 08/18/16 07:26 IMPRESSION: Nasogastric tube tip and side port in the stomach. Ileus bowel gas pattern Assessment & Plan - Diagnosis (1) Acute cecitis with rupture of appendix Is this a current diagnosis for this admission?: YesPlan: s/p surgery and f/u (2) Hypertension Qualifiers: Hypertension type: essential hypertension Qualified Code(s): I10 - Essential (primary) hypertension Is this a current diagnosis for this admission?: Yes (3) Mixed dementia Is this a current diagnosis for this admission?: YesPlan: stable (4) Osteoarthritis involving multiple joints on both sides of body Is this a current diagnosis for this admission?: Yes (5) Postoperative confusion Is this a current diagnosis for this admission?: YesPlan: all resolving from delirium - Time Time Spent with patient: 15-24 minutes Anticipated discharge: Home Within: Other - Inpatient Certification Medical Necessity: Significant Comorbidiites Make Outpatient Treatment Too Risky Post Hospital Care: D/C 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
[2016-08-20] MEDS: NORMAL SALINE 1000 ML 1,000 ML with POTASSIUM CHLORIDE 20 MEQ, MAGNESIUM SULFATE 8 MEQ,... IV SCH ×5 (19:47)
[2016-08-20] MEDS: MORPHINE SULFATE 10 MG/ML INJ IV PRN (20:11)
[2016-08-21] MEDS: PIPERACILLIN SODIUM/TAZOBACTAM 3.375 GM in NORMAL SALINE 100 ML IV SCH ×4 (05:26→22:58)
[2016-08-21 06:12] LABS: ABSOLUTE BASOPHILS # (AUTO) 0.1 10^3/uL (0.0-0.2); ABSOLUTE EOSINOPHILS # (AUTO) 0.1 10^3/uL (0.0-0.6); ABSOLUTE LYMPHOCYTES (AUTO) 1.9 10^3/uL (0.5-4.7); ABSOLUTE MONOCYTES (AUTO) 0.6 10^3/uL (0.1-1.4); ABSOLUTE NEUT (AUTO) 7.1 10^3/uL (1.7-8.2); BASOPHILS % (AUTO) 0.7 % (0-2); EOSINOPHILS % (AUTO) 1.5 % (0-6); HEMATOCRIT 35.2 % (37.9-51.0); HEMOGLOBIN 11.5 g/dL (13.5-17.0); HGB HCT DIFFERENCE -0.7; LYMPHOCYTES % (AUTO) 19.3 % (13-45); MEAN CORPUSCULAR HEMOGLOBIN 28.8 pg (27.0-33.4); MEAN CORPUSCULAR HGB CONC 32.8 g/dL (32.0-36.0); MEAN CORPUSCULAR VOLUME 88 fl (80-97); MONOCYTES % (AUTO) 6.6 % (3-13); RED BLOOD COUNT 4.01 10^6/uL (4.35-5.55); RED CELL DISTRIBUTION WIDTH 13.9 % (11.5-14.0); SEGMENTED NEUTROPHILS % (AUTO) 71.9 % (42-78); WHITE BLOOD COUNT 9.9 10^3/uL (4.0-10.5)
[2016-08-21 06:26] LABS: ANION GAP 8 (5-19); BLOOD UREA NITROGEN 11 mg/dL (7-20); CALCIUM 7.8 mg/dL (8.4-10.2); CARBON DIOXIDE 24 mmol/L (22-30); CHLORIDE 106 mmol/L (98-107); CREATININE RESULT 0.68 mg/dL (0.52-1.25); GLUCOSE 87 mg/dL (75-110); POTASSIUM 3.9 mmol/L (3.6-5.0); SODIUM 138.1 mmol/L (137-145)
--- NOTE | 2016-08-21 09:59 | PDOC PROGRESS REPORT ---
Subjective Progress Note for:: 08/21/16 Subjective:: Patient is feeling much better. Patient's denied any confusions of nursing stop no chest pain no shortness of the breath. Patient still have NG tube was clamped. Patient also Herrera catheter Physical Exam Vital Signs: Temp Pulse Resp BP Pulse Ox 98.2 F 62 18 130/69 H 98 08/21/16 07:36 08/21/16 07:36 08/21/16 07:36 08/21/16 07:36 08/21/16 07:36 Intake & Output 08/20/16 08/21/16 08/22/16 06:59 06:59 06:59 Intake Total 2600 1200 Output Total 2395 1450 Balance 205 -250 Weight 78.8 kg 78.7 kg General appearance: PRESENT: no acute distress Eye exam: PRESENT: PERRLA Mouth exam: PRESENT: neck supple Respiratory exam: PRESENT: clear to auscultation cesar Cardiovascular exam: PRESENT: +S1, +S2 GI/Abdominal exam: PRESENT: soft Additonal comments: k dressing intact Extremities exam: ABSENT: pedal edema Neurological exam: PRESENT: alert, awake, oriented to person, oriented to place Results Laboratory Results: 08/21/16 05:53 08/21/16 05:53 08/21/16 08/21/16 05:53 05:53 WBC 9.9 RBC 4.01 L Hgb 11.5 L Hct 35.2 L MCV 88 MCH 28.8 MCHC 32.8 RDW 13.9 Plt Count 238 Seg Neutrophils % 71.9 Lymphocytes % 19.3 Monocytes % 6.6 Eosinophils % 1.5 Basophils % 0.7 Absolute Neutrophils 7.1 Absolute Lymphocytes 1.9 Absolute Monocytes 0.6 Absolute Eosinophils 0.1 Absolute Basophils 0.1 Sodium 138.1 Potassium 3.9 Chloride 106 Carbon Dioxide 24 Anion Gap 8 BUN 11 Creatinine 0.68 Est GFR ( Amer) > 60 Est GFR (Non-Af Amer) > 60 Glucose 87 Calcium 7.8 L Impressions: Abdomen/Pelvis CT 08/17/16 19:49 IMPRESSION: Findings most consistent with acute appendicitis with moderate inflammatory changes and free fluid in the right lower quadrant mesentery and wall thickening in the adjacent distal ileum. Surgical consultation is recommended. KUB X-Ray 08/18/16 07:26 IMPRESSION: Nasogastric tube tip and side port in the stomach. Ileus bowel gas pattern Assessment & Plan - Diagnosis (1) Acute cecitis with rupture of appendix Is this a current diagnosis for this admission?: YesPlan: s/p surgery and f/u (2) Hypertension Qualifiers: Hypertension type: essential hypertension Qualified Code(s): I10 - Essential (primary) hypertension Is this a current diagnosis for this admission?: YesPlan: Currently on stable (3) Mixed dementia Is this a current diagnosis for this admission?: YesPlan: stable (4) Osteoarthritis involving multiple joints on both sides of body Is this a current diagnosis for this admission?: Yes (5) Postoperative confusion Is this a current diagnosis for this admission?: YesPlan: all resolving from delirium - Time Time Spent with patient: 15-24 minutes Medications reviewed and adjusted accordingly: Yes Anticipated discharge: Home Within: Other
[2016-08-21] MEDS: NORMAL SALINE 1000 ML 1,000 ML IV PRN (17:30)
[2016-08-21] MEDS: NORMAL SALINE 1000 ML 1,000 ML with POTASSIUM CHLORIDE 20 MEQ, MAGNESIUM SULFATE 8 MEQ,... IV SCH ×5 (18:25)
--- NOTE | 2016-08-21 23:28 | PROGRESS NOTE E ---
Progress Note NAME: KT ALEMAN : 1940 AGE: 76Y DATE: 08/21/2016 ROOM: 406 SUBJECTIVE: The patient is postoperative day 3 from appendectomy and cecectomy for perforated appendicitis. The patient feels he is doing well at the current time without any problems. He has not had any nausea or vomiting. He has not had any flatus or feces being present. OBJECTIVE: VITAL SIGNS: Temperature is 98.6, pulse 73, blood pressure 104/56. The patient's abdominal incision is healing well without any evidence of infection. The ELSIE drains are present with them draining 70 and 80 mL of serous fluid. ASSESSMENT: STATUS POST APPENDECTOMY AND CECECTOMY FOR PERFORATED APPENDICITIS, POSTOPERATIVE DAY 3. He is slowly improving. The NGT-tube has drained out minimally and will be removed, as well as Herrera. Physical therapy is working with him with ambulation. His white blood cell count today was 9.9, being the first day it was normal. He will continue on IV antibiotics for the next several days before consideration of switching him to oral. PLAN: 1. DC NG tube and Herrera. 2. Ambulate. 3. Wait for liquids until bowel function returns. 4. Continue IV antibiotics. DICTATING PHYSICIAN: PAULINE VAUGHN M.D. [id number] MARIANNEY#: [id number] ID: [id number] JOB#: [id number] ACCT: [id number] cc: > [facility]
--- NOTE | 2016-08-21 23:29 | PROGRESS NOTE E ---
Progress Note NAME: KT ALEMAN : 1940 AGE: 76Y DATE: 08/20/2016 ROOM: 406 SUBJECTIVE: The patient is postoperative day 2 from a cecectomy and appendectomy for perforated appendicitis. Cultures grew up strep viridans sensitive to the antibiotics he is on. The patient denies any problems with nausea and vomiting. He has not had any flatus. OBJECTIVE: The patient's abdominal incisions are healing well without any evidence of infection. His ELSIE drains have drained 20 and 50 mL of serous fluid. NG tube has drained out 600 mL. ASSESSMENT: STATUS POST CECECTOMY AND APPENDECTOMY WITH ILEOCOLIC ANASTOMOSIS. His wounds are healing well without any evidence of infection. He is on appropriate IV antibiotics. At this time I would recommend that his NG tube be clamped and check residuals every 6 hours. If he has low output then would see about removing it. I would wait until he has bowel function before starting him on any diet. PLAN: 1. Continue immobilization. 2. Continue IV antibiotics. 3. N.p.o. and IV fluids until bowel function returns. DICTATING PHYSICIAN: PAULINE VAUGHN M.D. [id number] PHY#: [id number] ID: [id number] JOB#: [id number] ACCT: [id number] cc: >
[2016-08-22 05:24] LABS: ABSOLUTE BASOPHILS # (AUTO) 0.1 10^3/uL (0.0-0.2); ABSOLUTE EOSINOPHILS # (AUTO) 0.2 10^3/uL (0.0-0.6); ABSOLUTE LYMPHOCYTES (AUTO) 2.3 10^3/uL (0.5-4.7); ABSOLUTE MONOCYTES (AUTO) 0.7 10^3/uL (0.1-1.4); ABSOLUTE NEUT (AUTO) 5.7 10^3/uL (1.7-8.2); BASOPHILS % (AUTO) 0.6 % (0-2); EOSINOPHILS % (AUTO) 1.8 % (0-6); HEMATOCRIT 32.9 % (37.9-51.0); HGB HCT DIFFERENCE 0.1; LYMPHOCYTES % (AUTO) 25.8 % (13-45); MEAN CORPUSCULAR HEMOGLOBIN 29.2 pg (27.0-33.4); MEAN CORPUSCULAR HGB CONC 33.4 g/dL (32.0-36.0); MEAN CORPUSCULAR VOLUME 88 fl (80-97); MONOCYTES % (AUTO) 7.8 % (3-13); RED BLOOD COUNT 3.76 10^6/uL (4.35-5.55); RED CELL DISTRIBUTION WIDTH 13.8 % (11.5-14.0)
[2016-08-22 05:36] LABS: ANION GAP 8 (5-19); BLOOD UREA NITROGEN 13 mg/dL (7-20); CALCIUM 7.9 mg/dL (8.4-10.2); CARBON DIOXIDE 25 mmol/L (22-30); CHLORIDE 104 mmol/L (98-107); GLUCOSE 93 mg/dL (75-110); POTASSIUM 3.5 mmol/L (3.6-5.0); SODIUM 136.7 mmol/L (137-145)
[2016-08-22] MEDS: PIPERACILLIN SODIUM/TAZOBACTAM 3.375 GM in NORMAL SALINE 100 ML IV SCH ×2 (05:38→11:47)
[2016-08-22] MEDS ORDERED: ENOXAPARIN SODIUM INJ 40 MG/0.4 ML DISP.SYRIN SUBCUT SCH (10:00)
[2016-08-22] MEDS ORDERED: HALOPERIDOL LACTATE INJ 5 MG/1 ML VIAL IV PRN (15:14)
[2016-08-22 16:07] VITALS: BP 121/77
--- NOTE | 2016-08-22 16:29 | DISCHARGE SUMMARY E ---
Discharge Summary NAME: KT ALEMAN : 1940 AGE: 76Y ADMITTED: 08/18/2016 DISCHARGED: 08/22/2016 REASON FOR ADMISSION: Acute abdominal pain. SUMMARY OF HOSPITALIZATION: The patient is a 76-year-old -[place] male with history of dementia who presented to the emergency department complaining of acute onset abdominal pain. He was evaluated and found to have findings consistent with acute appendicitis. The patient was admitted to the surgicalist service, kept n.p.o., and taken to the operating room by Dr. Soto where he underwent exploratory laparoscopy converted to laparotomy, ileocecectomy for acute appendicitis. The final path report was pending at time of dictation. Postoperatively the patient did well and he was started on diet. This was advanced and tolerated well. Pito-Lombardo drains were removed at bedside. Patient's midline wound healing satisfactorily. Patient was taken p.o. pain medication. By the fifth postoperative day, he was felt to be ready for discharge home. FINAL DIAGNOSES: 1. Acute abdominal pain, presumed appendicitis, status post ileocecectomy, Dr. Soto. 2. Dementia. DISPOSITION: 1. Patient will be discharged home in the care of his family. 2. Will take Tylenol or Motrin p.r.n. pain. 3. Await final path report. 4. Patient will follow up with [facility] in approximately 1 month. DICTATING PHYSICIAN: FRANCISCO JOSE M.D. [id number] PHY#: [id number] ID: [id number] JOB#: [id number] ACCT: [id number] cc:FRANCISCO JOSE M.D., JACQUELINE PA >
== END 2016-08-22 17:10 | disposition home or self-care (01) | DRG 331 ==
LOC: ER 16:26 → EH 08-18 00:15 → 4N 08-18 04:55
PROVIDERS: ADMIT Surgery; ATTEND Surgery
PROC: 0DBH0ZZ Excision of Cecum, Open Approach (ICD-10-PCS; 2016-08-18)
PROC: 0DJD4ZZ Inspection of Lower Intestinal Tract, Percutaneous Endoscopic Approach (ICD-10-PCS; 2016-08-18)
PROC: 0DTF0ZZ Resection of Right Large Intestine, Open Approach (ICD-10-PCS; 2016-08-18)
PROC: 0D1B0ZK Bypass Ileum to Ascending Colon, Open Approach (ICD-10-PCS; 2016-08-18)
PROC: 0DTJ0ZZ Resection of Appendix, Open Approach (ICD-10-PCS; principal; 2016-08-18 01:00)
DX: K35.3 Acute appendicitis with localized peritonitis (principal); F03.90 Unspecified dementia, unspecified severity, without behavioral disturbance, psychotic disturbance, mood disturbance, and anxiety; Z60.2 Problems related to living alone; F01.50 Vascular dementia, unspecified severity, without behavioral disturbance, psychotic disturbance, mood disturbance, and anxiety; I10 Essential (primary) hypertension; M19.90 Unspecified osteoarthritis, unspecified site; R41.0 Disorientation, unspecified
CPT/HCPCS: 00840; 36415; 74000; 74177; 80048; 80053; 81001; 82272; 83690; 85025; 85027; 87040; 87070; 87075; 87077; 87186; 87205; 88307; 96360; 96361; 99285; G8978-GP; G8979-GP; J0330; J1100; J1650; J2060; J2270; J2370; J2405; J2543; J2704; J3010; J3411; J3475; J3480; J3490; J7030; S0164